=== PATIENT | female | born 1975 | race Caucasian/White ===

== ENCOUNTER 2017-06-14 15:30 | Emergency (ER) | payer BC ==
[~2017-06-14] VITALS: Ht 167.6 cm; Wt 63.2 kg
[~2017-06-14 15:30] MED LIST: ADDERALL XR 2020 MG PO; AVELOX400 MG PO; EFFEXOR XR150 MG PO; HUMALOG100 UNITS/ SC; HYDROCODON-ACE1 EAC9 PO; INSULIN PUMP SCCONT; LEVOTHYROXINE; LEVOTHYROXINE137 MCG PO; LORAZEPAM1 MG PO; MACROBID100 MG PO; Novolin R SC; PREFERA-OB1 TABLET PO; Pyridium PO; SYMBICORT60 INHALAT IH
[2017-06-14 15:51] VITALS: BP 157/111
[2017-06-14] MEDS ORDERED: MOTRIN800 MG PO (17:30)
== END 2017-06-14 17:53 | disposition home or self-care (01) ==
LOC: EME 15:30
DX: S06.0X0A Concussion without loss of consciousness, initial encounter (principal); S16.1XXA Strain of muscle, fascia and tendon at neck level, initial encounter; W22.09XA Striking against other stationary object, initial encounter
CPT/HCPCS: 72040; 99281; 99283

== ENCOUNTER 2017-10-23 22:16 | Inpatient (IN) | payer BC ==
[~2017-10-23] VITALS: Ht 167.6 cm; Wt 70.0 kg
[~2017-10-23 22:16] MED LIST changes: -ADDERALL XR 2020 MG PO; +ADDERALL XR 3030 MG PO; +MOTRIN800 MG PO
[2017-10-23 22:59] LABS: BASOPHIL (%) 0.6 % (0-1); BASOPHIL COUNT 0.1 K/uL (0-0.1); EOSINOPHIL (%) 0.4 % (0-5); HEMATOCRIT 34.8 % (36.0-46.0); HEMOGLOBIN 11.4 G/DL (11.9-15.5); IMMATURE GRANULOCYTE (%) 0.6 % (0.0-0.7); LYMPHOCYTE (%) 11.3 % (15-42); LYMPHOCYTE COUNT 1.1 K/uL (1.0-2.8); MCH 27.5 PG (29.0-34.0); MCHC 32.8 G/DL (30.0-36.0); MCV 83.9 FL (83-99); MONOCYTE (%) 4.6 % (3-12); MONOCYTE COUNT 0.4 K/uL (0-0.8); NEUTROPHIL (%) 82.5 % (45-76); NEUTROPHIL COUNT 7.8 K/uL (1.8-6.4); PLATELET COUNT 404 K/uL (156-360); RBC DIS.WIDTH-CV 12.7 % (11.8-14.6); RED BLOOD COUNT 4.15 M/uL (3.80-5.20); WHITE BLOOD COUNT 9.5 K/uL (4.1-10.2)
[2017-10-23 23:05] LABS: CARBON DIOXIDE (BICARBONATE) 17.7 MEQ/L (20-31)
[2017-10-23 23:07] LABS: ALBUMIN 3.6 g/dL (3.2-4.8); CHLORIDE 95 mEq/L (99-109); POTASSIUM 5.5 mEq/L (3.7-5.4); SODIUM 129 mEq/L (136-147)
[2017-10-23 23:17] LABS: ALKALINE PHOSPHATASE 82 IU/L (3-129); CREATININE 1.1 mg/dL (0.6-1.3); GFR ESTIMATE (CALCULATED) 58 mL/min/
[2017-10-23 23:18] LABS: UREA NITROGEN (BUN) 17 mg/dL (9-23)
[2017-10-23 23:19] LABS: AST (GOT) 10 IU/L (2-34); DIRECT BILIRUBIN 0.5 mg/dL (0.0-0.3)
[2017-10-23 23:20] LABS: ALT (GPT) 12 IU/L (3-49); LIPASE 5 U/L (1.0-51.0)
[2017-10-23 23:30] LABS: GLUCOSE 691 mg/dL (70-99); TOTAL BILIRUBIN 0.8 mg/dL (0.0-1.0)
[2017-10-23 23:32] LABS: TOTAL PROTEIN 6.6 g/dL (6.4-8.3)
[2017-10-23 23:46] LABS: APPEARANCE CLEAR ((CLEAR)); BILIRUBIN NEGATIVE; BLOOD NEGATIVE; COLOR STRAW ((YELLOW)); GLUCOSE (STRIP) >=500; KETONES 80; LEUKOCYTES NEGATIVE; NITRITE NEGATIVE; PROTEIN (STRIP) NEGATIVE; SPECIFIC GRAVITY 1.021 (1.000-1.030); UCUL ADDED? NO; UROBILINOGEN 0.2 MG/DL (0.2-1.0)
[2017-10-23 23:56] LABS: AMPHETAMINE PRESUMPTIVE POSITIVE (500 ng/mL); BARBITURATES NEGATIVE (200 ng/mL); BENZODIAZEPINES NEGATIVE (150 ng/mL); BUPRENORPHINE NEGATIVE (10 ng/mL); COCAINE NEGATIVE (150 ng/mL); METHADONE NEGATIVE (200 ng/mL); METHAMPHETAMINE NEGATIVE (500 ng/mL); OPIATES (MORPHINE) NEGATIVE (100 ng/mL); OXYCODONE NEGATIVE (100 ng/mL); PHENCYCLIDINE NEGATIVE (25 ng/mL); PROPOXYPHENE NEGATIVE (300 ng/mL); THC CANNABINOIDS NEGATIVE (50 ng/mL); TRICYCLIC ANTIDEPRESSANTS NEGATIVE (300 ng/mL)
[2017-10-24] VITALS (18 sets, daily range): BP systolic 100–136; BP diastolic 58–89
[2017-10-24 04:20] LABS: SODIUM 133 mEq/L (136-147)
[2017-10-24 04:22] LABS: CHLORIDE 108 mEq/L (99-109); GLUCOSE 195 mg/dL (70-99); POTASSIUM 4.1 mEq/L (3.7-5.4)
[2017-10-24 04:26] LABS: CREATININE 0.7 mg/dL (0.6-1.3); GFR ESTIMATE (CALCULATED) > 59 mL/min/; PHOSPHORUS 3.1 mg/dL (2.5-4.9)
[2017-10-24 04:27] LABS: UREA NITROGEN (BUN) 12 mg/dL (9-23)
[2017-10-24 09:00] LABS: CHLORIDE 107 MEQ/L (99-109); CREATININE 0.7 MG/DL (0.6-1.3); GFR ESTIMATE (CALCULATED) > 59 mL/min/; PHOSPHORUS 3.6 mg/dL (2.5-4.9); SODIUM 136 MEQ/L (136-147); UREA NITROGEN (BUN) 11 mg/dL (9-23)
[2017-10-24 09:09] LABS: GLUCOSE 115 mg/dL (70-99)
[2017-10-24] MEDS ORDERED: BENADRYL25 MG PO (09:21)
[2017-10-24] MEDS ORDERED: ALEVE220 MG PO (09:22)
[2017-10-24 12:58] LABS: CHLORIDE 101 MEQ/L (99-109); CREATININE 0.8 MG/DL (0.6-1.3); GFR ESTIMATE (CALCULATED) > 59 mL/min/; PHOSPHORUS 3.2 mg/dL (2.5-4.9); POTASSIUM 4.9 MEQ/L (3.7-5.4); SODIUM 131 MEQ/L (136-147); UREA NITROGEN (BUN) 12 mg/dL (9-23)
[2017-10-24 13:01] LABS: GLUCOSE 444 mg/dL (70-99)
[2017-10-24 16:28] LABS: CHLORIDE 100 MEQ/L (99-109); CREATININE 0.9 MG/DL (0.6-1.3); GFR ESTIMATE (CALCULATED) > 59 mL/min/; PHOSPHORUS 2.2 mg/dL (2.5-4.9); SODIUM 131 MEQ/L (136-147); UREA NITROGEN (BUN) 13 mg/dL (9-23)
[2017-10-24 16:29] LABS: GLUCOSE 418 mg/dL (70-99); POTASSIUM 3.9 MEQ/L (3.7-5.4)
[2017-10-24 20:16] LABS: CHLORIDE 109 MEQ/L (99-109); POTASSIUM 3.9 MEQ/L (3.7-5.4); SODIUM 136 MEQ/L (136-147)
[2017-10-24 20:21] LABS: CREATININE 0.8 MG/DL (0.6-1.3); GFR ESTIMATE (CALCULATED) > 59 mL/min/; GLUCOSE 267 mg/dL (70-99); PHOSPHORUS 1.9 mg/dL (2.5-4.9); UREA NITROGEN (BUN) 11 mg/dL (9-23)
[2017-10-25] VITALS (16 sets, daily range): BP systolic 120–162; BP diastolic 79–112
[2017-10-25 00:49] LABS: CHLORIDE 111 mEq/L (99-109); POTASSIUM 3.8 mEq/L (3.7-5.4); SODIUM 138 mEq/L (136-147)
[2017-10-25 00:55] LABS: CREATININE 0.7 mg/dL (0.6-1.3); GFR ESTIMATE (CALCULATED) > 59 mL/min/
[2017-10-25 00:56] LABS: UREA NITROGEN (BUN) 10 mg/dL (9-23)
[2017-10-25 01:09] LABS: GLUCOSE 123 mg/dL (70-99)
[2017-10-25 09:41] LABS: Estimated Average Glucose 252 mg/dL (70-123); HEMOGLOBIN A1c (GLYCOHEMOGLOB) 10.4 % HGB (Below 5.7)
[2017-10-25 20:40] LABS: CHLORIDE 105 MEQ/L (99-109); CREATININE 0.6 MG/DL (0.6-1.3); GFR ESTIMATE (CALCULATED) > 59 mL/min/; MAGNESIUM 1.7 mg/dl (1.3-2.7); POTASSIUM 3.8 MEQ/L (3.7-5.4); SODIUM 139 MEQ/L (136-147); UREA NITROGEN (BUN) 5 mg/dL (9-23)
[2017-10-25 20:41] LABS: GLUCOSE 222 mg/dL (70-99)
[2017-10-26 00:46] LABS: GLUCOSE 341 mg/dL (70-99)
[2017-10-26 03:40] VITALS: BP 140/88
[2017-10-26 07:07] LABS: BASOPHIL (%) 0.8 % (0-1); EOSINOPHIL (%) 4.2 % (0-5); EOSINOPHIL COUNT 0.2 K/uL (0-0.3); HEMATOCRIT 32.4 % (36.0-46.0); HEMOGLOBIN 10.6 G/DL (11.9-15.5); IMMATURE GRANULOCYTE (%) 0.2 % (0.0-0.7); LYMPHOCYTE COUNT 1.7 K/uL (1.0-2.8); MCH 27.4 PG (29.0-34.0); MCHC 32.7 G/DL (30.0-36.0); MCV 83.7 FL (83-99); MONOCYTE COUNT 0.5 K/uL (0-0.8); NEUTROPHIL (%) 48.8 % (45-76); NEUTROPHIL COUNT 2.3 K/uL (1.8-6.4); RBC DIS.WIDTH-CV 13.2 % (11.8-14.6); RBC DIS.WIDTH-SD 40.4 % (39-53); RED BLOOD COUNT 3.87 M/uL (3.80-5.20); WHITE BLOOD COUNT 4.8 K/uL (4.1-10.2)
[2017-10-26 07:18] LABS: CHLORIDE 101 MEQ/L (99-109); CREATININE 0.6 MG/DL (0.6-1.3); GFR ESTIMATE (CALCULATED) > 59 mL/min/; GLUCOSE 400 mg/dL (70-99); MAGNESIUM 1.8 mg/dl (1.3-2.7); PHOSPHORUS 3.2 mg/dL (2.5-4.9); POTASSIUM 4.6 MEQ/L (3.7-5.4); SODIUM 137 MEQ/L (136-147); UREA NITROGEN (BUN) 6 mg/dL (9-23)
[2017-10-26 07:20] LABS: PLAT.SUFFICIENCY ADEQUATE
[2017-10-26 07:21] LABS: PLATELET COUNT 279 K/uL (156-360)
[2017-10-26 07:28] VITALS: BP 126/76
[2017-10-26 15:23] VITALS: BP 153/96
== END 2017-10-26 19:18 | disposition home or self-care (01) | DRG 919 ==
LOC: EME → EDBD 22:16 → EME 22:16 → EDOF 23:39 → 4WEST 23:39 → ENRESERV 23:39 → 4WEST 10-24 00:41 → ENRESERV 10-25 21:16 → 5SOUTH 10-25 22:39
PROVIDERS: Emergency Medicine; Hospitalist; Internal Medicine Critical Care Medicine; Specialist
DX: T85.694A Other mechanical complication of insulin pump, initial encounter (principal); Y83.1 Surgical operation with implant of artificial internal device as the cause of abnormal reaction of the patient, or of later complication, without mention of misadventure at the time of the procedure; Y74.2 Prosthetic and other implants, materials and accessory general hospital and personal-use devices associated with adverse incidents; E10.10 Type 1 diabetes mellitus with ketoacidosis without coma; E86.0 Dehydration; E86.9 Volume depletion, unspecified; E87.1 Hypo-osmolality and hyponatremia; E87.5 Hyperkalemia; E03.9 Hypothyroidism, unspecified; I10 Essential (primary) hypertension; J45.909 Unspecified asthma, uncomplicated; F32.9 Major depressive disorder, single episode, unspecified; F41.9 Anxiety disorder, unspecified; G89.29 Other chronic pain; Z96.41 Presence of insulin pump (external) (internal); Z79.4 Long term (current) use of insulin; Z23 Encounter for immunization; Z98.84 Bariatric surgery status
CPT/HCPCS: 80048; 80048 91; 80076; 81003; 82607; 82803; 82947 91; 82948; 83036; 83690; 83735; 84100; 84999; 85025; 87641; 90686; 99281; 99285; J1650; J1815; J7030; J7050; J7120